=== PATIENT | female | born 1975 | race Caucasian/White ===

== ENCOUNTER 2020-05-22 10:19 | Outpatient (CLI) | payer OTHER, SELFPAY ==
--- NOTE | ~2020-05-22 | MM_ITS ---
EXAMINATION: MM screening [facility] BI w [place] HISTORY: Screening mammogram TECHNIQUE: Craniocaudal and mediolateral oblique 3-D tomosynthesis images were obtained and synthetic 2-D images were generated. CAD analysis was submitted and interpreted. COMPARISON: 05/04/2019, 04/28/2018, 04/19/2017 BREAST PARENCHYMAL COMPOSITION: There are scattered areas of fibroglandular density. FINDINGS: There is no evidence of suspicious mass, calcification, or architectural distortion to sugg est malignancy in either breast. There has been no suspicious interval change. IMPRESSION: 1. No mammographic evidence of malignancy. 2. Recommend routine screening mammography in one year. BI-RADS Category 1: Negative Reviewed, dictated and finalized at location A.
== END 2020-05-22 10:20 | disposition home or self-care (01) ==
LOC: ANHIMG 10:21
PROVIDERS: PCP Internal Medicine; Visit Provider Obstetrics & Gynecology
DX: Z12.31 Encounter for screening mammogram for malignant neoplasm of breast (principal)
CPT/HCPCS: 77063; 77067

== ENCOUNTER 2021-05-24 10:21 | Outpatient (CLI) | payer OTHER, SELFPAY ==
--- NOTE | ~2021-05-24 | MM_ITS ---
EXAMINATION: MM screening [facility] [place] HISTORY: Screening TECHNIQUE: Craniocaudal and mediolateral oblique 3-D tomosynthesis images were obtained and synthetic 2-D images were generated. CAD analysis was submitted and interpreted. COMPARISON: Comparison to multiple prior studies sequentially, with oldest reviewed study dated 12/04. BREAST PARENCHYMAL COMPOSITION: There are scattered areas of fibroglandular density. FINDINGS: There is no evidence of suspicious mass, calcification, or architectural distortion to sugg est malignancy in either breast. There has been no suspicious interval change. IMPRESSION: 1. No mammographic evidence of malignancy. 2. Recommend routine screening mammography in one year. BI-RADS Category 1: Negative Reviewed, dictated and finalized at location A.
== END 2021-05-24 10:22 | disposition home or self-care (01) ==
LOC: ANHIMG 10:23
PROVIDERS: PCP Internal Medicine; Visit Provider Obstetrics & Gynecology
DX: Z12.31 Encounter for screening mammogram for malignant neoplasm of breast (principal)
CPT/HCPCS: 77063; 77067

== ENCOUNTER 2022-06-20 11:23 | Outpatient (CLI) | payer OTHER, SELFPAY ==
--- NOTE | ~2022-06-20 | MM_ITS ---
EXAMINATION: MM screening [facility] BI w [place] HISTORY: Screening mammogram TECHNIQUE: Craniocaudal and mediolateral oblique 3-D tomosynthesis images were obtained and synthetic 2-D images were generated. CAD analysis was submitted and interpreted. COMPARISON: 05/24/2021, 05/22/2020, 05/04/2019 BREAST PARENCHYMAL COMPOSITION: There are scattered areas of fibroglandular density. FINDINGS: No suspicious mass, calcification, or architectural distortion are identified in either sandra ast to suggest malignancy. There has been no suspicious interval change. IMPRESSION: 1. No mammographic evidence of malignancy. 2. Recommend routine screening mammography in one year. BI-RADS Category 1: Negative Reviewed, dictated and finalized at location A. ER RESISTANCE
== END 2022-06-20 11:24 | disposition home or self-care (01) ==
PROVIDERS: PCP Internal Medicine; Visit Provider Obstetrics & Gynecology
DX: Z12.31 Encounter for screening mammogram for malignant neoplasm of breast (principal)
CPT/HCPCS: 77063; 77067

== ENCOUNTER 2023-11-03 10:07 | Outpatient (CLI) | payer OTHER, SELFPAY ==
--- NOTE | ~2023-11-03 | MM_ITS ---
EXAMINATION: MM screening [facility] [place] HISTORY: Screening mammogram TECHNIQUE: Craniocaudal and mediolateral oblique 3-D tomosynthesis images were obtained and synthetic 2-D images were generated. CAD analysis was submitted and interpreted. COMPARISON: 06/20/2022, 05/24/2021 bilateral screening mammogram examinations BREAST PARENCHYMAL COMPOSITION: There are scattered areas of fibroglandular density. FINDINGS: There is no evidence of suspicious mass, calcification, or architectural distortion to sugg est malignancy in either breast. There has been no suspicious interval change. IMPRESSION: 1. No mammographic evidence of malignancy. 2. Recommend routine screening mammography in one year. BI-RADS Category 1: Negative Reviewed, dictated and finalized at location A.
== END 2023-11-03 10:08 | disposition home or self-care (01) ==
PROVIDERS: PCP Internal Medicine; Visit Provider Obstetrics & Gynecology
DX: Z12.31 Encounter for screening mammogram for malignant neoplasm of breast (principal)
CPT/HCPCS: 77063; 77067

== ENCOUNTER 2024-12-07 14:59 | Outpatient (CLI) | payer OTHER, SELFPAY ==
--- OUTSIDE RECORDS SUMMARY | 2024-12-07 15:04 | XMS_ITS | Data Portability ---
Author Organization [place] - [employer], Main Office Address [address] [place] [address] Assessment No assessment recorded. Plan of Treatment Reminders Order Date Submit Date Provider Last Modified By Organization Details Last Modified Time Details Appointments Any 15 2024 03:30P M Attila Cedillo MD Not available Not available Not available Lab basic metabolic 1997 panel, serum or plasma 2024 025 [email or web address] [facility], [address], [address], [place], [address], 12/04/2024 17:35:00 HbA1c (hemoglob in A1c), blood 2024 025 [email or web address] [facility], [address], [address], [place], [address], 12/04/2024 17:35:00 basic metabolic 1998 panel, serum or plasma 2024 025 JOSE ELIAS [facility], [address], [address], [place], [address], 08/19/2024 16:30:19 HbA1c (hemoglob in A1c), blood 2024 025 JOSE ELIAS [facility], [address], [address], [place], [address], 08/19/2024 14:12:01 HbA1c (hemoglob in A1c), blood 2023 024 [facility], [address], [address], [place], [address], 03/28/2024 09:49:04 CMP, serum or plasma 2023 024 [place] [id number] [facility], [address], [address], [place], [address], 03/28/2024 09:49:04 microalbu min, urine 2023 024 [place] [address] [facility], 2022 [address], [address], [place], [address], 03/28/2024 09:49:04 lipid panel, serum 2023 024 [place] [address] [facility], 20[address], [address], [place], [address], 03/28/2024 09:49:04 CBC w/ auto diff 2023 024 [place] [address] [facility], [address], [address], [place], [address], 03/28/2024 09:49:04 HbA1c (hemoglob in A1c), blood 2023 024 [email or web address] [facility], [address], [address], [place], [address], 10/06/2023 16:29:38 BMP, serum or plasma 2023 024 [email or web address] [facility], [address], [address], [place], [address], 10/06/2023 16:30:29 Referral None recorded. Procedures None recorded. Surgeries None recorded. Imaging None recorded. Medication Orders Ozempic 0.25 mg or 0.5 mg (2 mg/3 mL) subcutane ous pen injector 2024 025 [email or web address] [facility] [address], [address] [place] [address], [address], 11/27/2024 17:51:49 OneTouch Verio test strips 2024 025 [email or web address] [facility] [address], [address] [place] [address], [address], 08/17/2024 17:04:37 metformin ER 500 mg tablet,ex tended release 24 hr 2022 023 JOSE ELIAS [facility] [address], [address] [place] [address], [address], 06/07/2023 16:51:40 glimepiri de 1 mg tablet 2022 023 [email or web address] [place] [address], [address] [place] [address], [address], 05/29/2024 08:45:45 Patient TargetsNo targets recorded. Patient InstructionsNo instructions recorded. Reason for Referral None Reported. Results Created Date Observation Date Name Description Value Unit Range Abnormal Flag Note LastModifiedBy Organization Detail LastModifiedTime 10/06/1910/06/2023 BASIC METAB OLIC PANEL sodium 138 mmol/ L 137-14 5 Not Available [facility] (Lab) [address] [place], [address], 10/06/2023 19:13:54 10/06/1910/06/2023 BASIC METAB OLIC PANEL potassium 3.8 mmol/ L 3.5-5. 1 Not Available [facility] (Lab) [address] [place], [address], 10/06/2023 19:13:54 10/06/19 24 10/06/2023 BASIC METAB OLIC PANEL chloride 104 mmol/ L 98-107 Not Available [facility] (Lab) [address] [place], [address], 10/06/2023 19:13:54 10/06/19 24 10/06/2023 BASIC METAB OLIC PANEL carbon dioxide 28 mmol/ L 22-30 Not Available [facility] (Lab) [address] [place], [address], 10/06/2023 19:13:54 10/06/19 24 10/06/2023 BASIC METAB OLIC PANEL anion gap 9.8 mmol/ L 14-22 low Not Available [facility] (Lab) [address] [place], [address], 10/06/2023 19:13:54 10/06/19 24 10/06/2023 BASIC METAB OLIC PANEL glucose 112 mg/dL 70-99 high Not Available [facility] (Lab) [address] [place], [address], 10/06/2023 19:13:54 10/06/19 24 10/06/2023 BASIC METAB OLIC PANEL BUN 14 mg/dL 8-19 Not Available [facility] (Lab) [address] [place], [address], 10/06/2023 19:13:54 10/06/19 24 10/06/2023 BASIC METAB OLIC PANEL creatinine 0.52 mg/dL 0.66-1 .25 low Not Available [facility] (Lab) [address] [place], [address], 10/06/2023 19:13:54 10/06/19 24 10/06/2023 BASIC METAB OLIC PANEL GFR >60 Refer ence Range : Picher ge GFR Healt hy Adult : >60 mL/mi n/1.7 3 m2 Chron ic Kidne y Disea se: 15-60 mL/mi n/1.7 3 m2 Kidne y Failu re: <15/m L/min /1.73 m2 www.n iddk. nih.g ov The MDRD study equat ion has not been valid ated in child mahendra <18 years of age; pregn ant women ; the elder ly >85 years of age; or in some racia l or ethni c subgr oups, such as Hispa nics. Outsi de the valid ated cody eters , estim ated GFR is less accur ate, requi ring clini shawna judgm ent on a case- by-ca se basis . Clini shawna inter preta tion for other races and ages must be made by the clini ida. The MDRD study equat ion has not been valid ated for the evalu ation of serum creat inine relat ed to nutri aristides l statu s or medic ation usage . For perso ns <18 years of age, a pedia tric GFR calcu lator is avail able on the F websi te: https ://ww w.kid margaret.o rg/pr ofess ional s/kdo qi/gf r_cal culat or Not Available [facility] (Lab) [address] [place], [address], 10/06/2023 19:13:54 10/06/19 24 10/06/2023 BASIC METAB OLIC PANEL calcium 9.6 mg/dL 8.4-10 .2 Not Available [facility] (Lab) [address] [place], [address], 10/06/2023 19:13:54 10/06/19 24 10/06/2023 HEMOG LOBIN A1C HA1C 6.8 % 4.0-6. 0 high Diabe sylvia Scree emelia Crite eboni: <5.7% Consi stent with absen ce of diabe sylvia 5.7-6 .4% Consi stent with incre ased risk for diabe sylvia (pred iabet es) >OR=6 .5% Consi stent with diabe sylvia REFER ENCE: Diabe sylvia Care 2016, 39(Cr ppl.1 ):s13 -s22 Not Available [facility] (Lab) [address] [place], [address], 10/06/2023 20:26:51 Result Notes None recorded. Problems Name Problem SNOMED Code Status Onset Date Resolution Date Notes Provider Name and Address Organization Details Recorded Time Pain of bilateral knee joints 04284255579 4104 Completed 202211/02/2022 Mary Macias CMA null, [place] [facility] 3 15:49:29 Pain of bilateral knee joints 51796298112 4104 Active 2022 Mary Macias CMA null, [place] [employer] [facility] 3 15:49:29 Gestation al diabetes mellitus 23729728 Completed Not Available [facility] 3 03:26:14 Otalgia 33206680 Completed 202106/05/2022 Not Available [facility] 3 03:26:14 Otalgia 95095580 Completed 202101/23/2022 Not Available [facility] 3 03:26:14 Steatotic liver disease 211337184 Active 2020 Not Available [facility] 3 03:26:14 Contact dermatiti s caused by urushiol from [facility] 093283236 Completed Not Available [facility] 3 03:26:14 Overweigh t 487498624 Completed 10/07/2022 Crystal acuna RMA null, [place] - [facility] 3 10:28:17 Low back pain 593963564 Completed Not Available [facility] 3 03:26:14 Type 2 diabetes mellitus without complicat ion 515330314 Completed 202101/23/2022 Not Available [facility] 3 03:26:14 Blood in urine 76989858 Completed 202001/23/2022 Not Available [facility] 3 03:26:14 Obesity 405765423 Active 2021 Crystal acuna RMA null, [employer] [facility] 3 10:27:46 Hyperlipi demia 98760619 Active 2019 Not Available [facility] 3 03:26:14 Diabetes mellitus 63193795 Active 2020 Attila Cedillo MD [address] [place] [address], [address], [address] , [facility] 5 11:19:34 Metabolic dysfuncti on-associ ated steatotic liver disease Active 2024 Attila eCdillo MD [address] [facility], [facility] [address], [place], [address] , [facility] [employer] 5 11:20:20 Problem Notes None recorded. Procedures Surgical History Date Name Laterality Status Provider Name and Address Organization Details Recorded Time section completed Not Available [facility] 09/23/2022 03:18:52 Imaging Results None recorded. Procedure Notes None recorded. Medical Equipment None Reported. Allergies No known drug allergies Medications Name Sig Start Date Stop Date Status Note LastModified by Organization Details LastModified Time metformin 500 mg tablet TAKE 2 TABLETS BY MOUTH TWICE DAILY active Not Available Not Available No t Available triamcinolo ne acetonide 0.5 % topical cream APPLY A THIN LAYER TO THE AFFECTED AREA(S) BY TOPICAL ROUTE 2 TIMES PER DAY 10/01 completed Not Available Not Available Not Available hydrocodone 5 mg-acetamin ophen 325 mg tablet 05/08 completed Not Available Not Available Not Available simvastatin 10 mg tablet TAKE 1 TABLET BY MOUTH EVERY DAY active Not Available Not Available No t Available Nexium 40 mg capsule,del ayed release Take 1 capsule every day by oral route as needed. 03/16 completed Not Available Not Available Not Available phentermine 37.5 mg tablet TK 1 T PO QD 10/01 completed Not Available Not Available Not Available phentermine 30 mg capsule TK 1 C PO QD 10/01 completed Not Available Not Available Not Available glimepiride 2 mg tablet TAKE 2 TABLETS BY MOUTH IN THE MORNING AND 1 TABLET IN THE EVENING 2024 active SABI 5/5/2 5 NOV 7/8/2 5 ok to rf Not Available Not Available Not Available glimepiride 1 mg tablet TAKE 2 TABLETS BY MOUTH IN THE MORNING AND 1 TABLET IN THE EVENING DAILY active Not Available Not Available No t Available Kenalog 40 mg/mL suspension for injection Take 1 mL by injection route. 10/01 completed Not Available Not Available Not Available amoxicillin 875 mg tablet TAKE 1 TABLET BY MOUTH TWICE DAILY UNTIL GONE 02/02 completed Not Available Not Available Not Available ciprofloxac in 0.3 % eye drops INSTILL 1 DROP INTO AFFECTED EYE(S) BY OPHTHALMI C ROUTE EVERY 2 HOURSWHIL E AWAKE FOR 2 DAYS THEN 1 DROP EVERY 4 HRS WHILE AWAKE FOR 5 DAYS 07/15 completed Not Available Not Available Not Available hydroxyzine HCl 25 mg tablet Take 1 tablet 3 times a day by oral route. active Not Available Not Available No t Available ibuprofen 600 mg tablet 05/08 completed Not Available Not Available Not Available methylpredn isolone 4 mg tablets in a dose pack take as directed active Not Available Not Available No t Available metformin ER 500 mg tablet,exte nded release 24 hr TAKE 2 TABLETS BY MOUTH TWICE DAILY active Not Available Not Available No t Available Microlet Lancet active Not Available Not Available Not Available metformin ER 1,000 mg tablet,exte nded release 24hr (osmotic) Take 1 tablet twice a day by oral route. 06/28 completed Not Available Not Available Not Available Contour Next Test Strips Use test strips to check blood sugar BID 2024 active Not Available Not Available Not Avai lable Tri-Estaryl la (28) 0.18 mg(7)/0.215 mg(7)/0.25 mg(7)-0.035 mg tablet TAKE 1 TABLET BY MOUTH EVERY DAY active Not Available Not Available No t Available Jardiance 10 mg tablet Take 1 tablet every day by oral route. 10/06 completed Not Available Not Available Not Available Flucelvax Quad 6941-5946 (PF) 60 mcg (15 mcg x 4)/0.5 mL IM syringe TO BE ADMINISTE RED BY PHARMACIS T FOR IMMUNIZAT ION 10/01 completed Not Available Not Available Not Available Flucelvax Quad 4003-7646 (PF) 60 mcg (15 mcg x 4)/0.5 mL IM syringe TO BE ADMINISTE RED BY PHARMACIS T FOR IMMUNIZAT ION 07/15 completed Not Available Not Available Not Available Afluria Quad (PF) 60 mcg (15 mcg x 4)/0.5 mL IM syringe active Not Available Not Available N ot Available Flucelvax Quad (PF) 60 mcg (15 mcg x 4)/0.5 mL IM syringe active Not Available Not Available N ot Available Rybelsus 7 mg tablet Take 1 tablet every day by oral route. 03/05 completed Not Available Not Available Not Available Fluzone Quad (PF) 60 mcg (15 mcg x 4)/0.5 mL IM syringe PHARMACY ADMINISTE RED 06/25 completed Not Available Not Available Not Available Ozempic 0.25 mg or 0.5 mg (2 mg/3 mL) subcutaneou s pen injector Inject 0.5 mg by subcutane ous route once a week 2024 active Not Available Not Available Not Avai lable Vitals Date Recorded Body height Body mass index (BMI) Body weight Heart rate Oxygen saturation Oxygen saturation in Arterial blood by Pulse oximetry Body temperature Systolic blood pressure Diastolic blood pressure Provider Name and Address Organization Details Last Updated DateTime 3 154.94 cm 29.7 kg/m2 07332 g 84 /min 98 % 98 % 98.1 [degF] 122 mm[Hg] 78 mm[Hg] Holden Rangel [facility] [employer] [facility] [employer] [facility] 3 15:53:57 Date Recorded Body height Body mass index (BMI) Body weight Body temperature Heart rate Oxygen saturation Oxygen saturation in Arterial blood by Pulse oximetry Systolic blood pressure Diastolic blood pressure Provider Name and Address Organization Details Last Updated DateTime 4 154.94 cm 30.6 kg/m2 55873.9 6 g 98.8 [degF] 91 /min 99 % 99 % 124 mm[Hg] 82 mm[Hg] Ernestina daigle [facility] [employer] [facility] [employer] [facility] 4 15:45:41 Date Recorded Body height Body mass index (BMI) Body weight Body temperature Heart rate Oxygen saturation Oxygen saturation in Arterial blood by Pulse oximetry Systolic blood pressure Diastolic blood pressure Provider Name and Address Organization Details Last Updated DateTime 4 154.94 cm 30 kg/m2 33254.1 9 g 98.6 [degF] 90 /min 98 % 98 % 120 mm[Hg] 74 mm[Hg] Shannan Patel [facility] [employer] [facility] 4 15:12:26 Date Recorded Body height Body mass index (BMI) Body weight Body temperature Oxygen saturation Oxygen saturation in Arterial blood by Pulse oximetry Heart rate Systolic blood pressure Diastolic blood pressure Provider Name and Address Organization Details Last Updated DateTime 5 154.94 cm 31 kg/m2 04807.1 5 g 97.8 [degF] 98 % 98 % 87 /min 124 mm[Hg] 78 mm[Hg] Yadira castillo [employer] 5 15:06:03 Date Recorded Body height Body mass index (BMI) Body weight Body temperature Heart rate Oxygen saturation Oxygen saturation in Arterial blood by Pulse oximetry Systolic blood pressure Diastolic blood pressure Provider Name and Address Organization Details Last Updated DateTime 5 154.94 cm 31.6 kg/m2 01223.9 3 g 97.3 [degF] 85 /min 98 % 98 % 140 mm[Hg] 88 mm[Hg] AMPARO Neal [employer] 5 11:03:35 Social History Question Answer Notes LastModified by Organizat ion Details LastModified Time Tobacco Smoking Status Never Smoker Sonia breen [employer] 02/08/2023 15:48:20 Do You Have An Advance Directive? No [id number] Information not available 09/23/2022 What Is Your Level Of Caffeine Consumption? Occasional [id number] Information not available 09/23/2022 How Much Tobacco Do You Chew? None [id number] Information not available 09/23/2022 In The 14 Days Before Symptom Onset, Have You Had Close Contact With A Laboratory-confir med COVID-19 While That Case Was Ill? No Information not available 02/08/2023 In The 14 Days Before Symptom Onset, Have You Had Close Contact With A Person Who Is Under Investigation For COVID-19 While That Person Was Ill? No Information not available 02/08/2023 What Type Of Diet Are You Following? REGULAR [id number] Information not available 09/23/2022 Which Illicit Or Recreational Drugs Have You Used? None Information not available 02/08/2023 What Is The Highest Grade Or Level Of School You Have Completed Or The Highest Degree You Have Received? [id number] Information not available 02/08/2023 Have There Been Any Changes To Your Family Or Social Situation? No Information no t available 02/08/2023 What Is The Fluoride Status Of Your Home? Unknown Information not available 02/08/2023 Are There Any Guns Present In Your Home? No Information not available 02/08/2023 Where Do You Live? SingleLevelHouse Information not available 02/08/2023 Do You Have A Medical Power Of Care Partner? No Information not available 02/08/2023 What Was The Date Of Your Most Recent Tobacco Screening? 03/05/2021 Information not available 02/08/2023 What Is Your Relationship Status? [id number] Information not available 09/23/2022 Do You Use Your Seat Belt Or Car Seat Routinely? Yes Information not available 02/08/2023 Do You Have Smoke And Carbon Monoxide Detectors In Your Home? Yes Information not available 02/08/2023 Are You Passively Exposed To Smoke? No Information no t available 02/08/2023 Are There Any Smokers In Your House? No Information not available 02/08/2023 Do You Use Sunscreen Routinely? Yes Information not available 02/08/2023 Have You Recently Traveled Abroad? No Information not available 02/08/2023 Do You Have Any Dietary Restrictions? No Information not available 02/08/2023 Sex: Female Functional Status Question Answer Note LastModified by Organizat ion Details LastModified Time Do you use any illicit or recreational drugs? No Information not available 02/08/2023 What is your level of alcohol consumption? 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 None [id number] Information not available 09/23/2022 Mental Status Question Answer Note LastModified by Organization D etails LastModified Time Do you feel stressed (tense, restless, nervous, or anxious, or unable to sleep at night)? [id number] Information not available 02/08/2023 Family History Relationship Description Onset Age of this Age Resolved Age Notes LastModified by Organization Details LastModified Time Father Malignant lymphoma Not available 2024 14:57:48 Mother Diabetes mellitus [id number] Not available 09/23/2022 03:18:57 Mother Essential hypertension Not available 14:57:48 Medical History No medical history recorded. Gynecological HistoryNo gynecological history recorded. Obstetrics History GPAL:G 0 P 0 0 0 0 Immunizations Vaccine Type Date Status Note Provider Nam e and Address Organization Details Recorded Time Influenza, split virus, quadrivalent, preservative 2 completed Ernestina Baumann [employer] null, [facility] 10/06/2023 15:45:48 Influenza, split virus, quadrivalent, preservative 1 completed Ernestina Baumann [employer] null, [facility] 10/06/2023 15:45:48 SARS-COV-2 (COVID-19) vaccine, UNSPECIFIED 1 completed Ernestina Baumann CMA null, [facility] 10/06/2023 15:45:48 SARS-COV-2 (COVID-19) vaccine, UNSPECIFIED 1 completed Ernestina Baumann [employer] null, [facility] 10/06/2023 15:45:48 Influenza, split virus, quadrivalent, preservative 0 completed Ernestina Baumann [employer] null, [facility] 10/06/2023 15:45:48 Influenza, split virus, quadrivalent, preservative 7 completed Not Available [facility] 09/23/2022 03:35:09 influenza, unspecified formulation 6 completed Ernestina Baumann [employer] null, [facility] 10/06/2023 15:45:48 Influenza, split virus, quadrivalent, preservative 9 completed Ernestina Baumann [employer] null, [facility] 10/06/2023 15:45:48 influenza, unspecified formulation 8 completed Ernestina Baumann [employer] null, [facility] 10/06/2023 15:45:48 Influenza, split virus, trivalent, preservative 3 completed Not Available [facility] 09/23/2022 03:35:10 Influenza, high-dose, trivalent, PF 5 completed Not Available [facility] 09/23/2022 03:35:10 Influenza, split virus, trivalent, preservative 4 completed Ernestina Baumann [employer] null, [place] [employer] [facility] [employer] [facility] 10/06/2023 15:45:48 Influenza, split virus, trivalent, PF 3 completed Ernestina Baumann [employer] null, [employer] [facility] [employer] 10/06/2023 15:45:48 Influenza, split virus, quadrivalent, PF 3 completed Attila Cedillo MD [address], [address], [place], [address], [employer] 04/26/2023 09:36:05 Influenza, split virus, trivalent, PF 5 completed Attila Cedillo MD [address], [address], [place], [address], [employer] 08/17/2024 15:57:36 Past Encounters Encounter ID Performer Location Encounter Start Date Encounter Closed Date Diagnosis/Indication Diagnosis SNOMED-CT Code Diagnosis ICD10 Code Diagnosis Note [id number] MD WILLIAM [facility] [address] [place] [address] 10/30/2020 00:00:00 10/30/2020 17:34:34 [id number] MD GABI [facility] [address] [place] [address] 03/05/2021 00:00:00 03/05/2021 17:28:20 [id number] MD WILLIAM [facility] [address] [place] [address] 06/05/2021 00:00:00 06/05/2021 15:56:57 [id number] MD WILLIAM [facility]izar[facility] Internal [address] [place] [address] 10/06/2021 00:00:00 10/06/2021 10:13:45 [id number] Attila Cedillo MD [facility] Internal Med [facility] [address] [place] [address] 02/02/2022 00:00:00 02/02/2022 12:56:49 [id number] Attila Cedillo MD [facility] Internal Med [address] [place] [address] 06/05/2022 00:00:00 06/05/2022 11:50:45 [id number] Attila Cedillo MD [facility] Internal Med [address] [place] [address] 10/07/2022 10:19:14 10/07/2022 11:17:57 Diabetes mellitus 62443927 E11.9 STOP glimepride due to hypoglycem ia Hyperlipidemia 05085961 E78.5 stable Obesity 309069881 E66.9 watch diet Adult heal th examination 158643344 Z00.00 Pap- 2021- GYNMammogr am- 05/2022FLU - 2COV ID- #1- 09/27/20, #2- 10/18/20 Steatotic liver disease 791878615 K76.0 lose weight Pain of bi lateral knee joints 9135725255 89146 M25.561 knee exercises discussed [id number] Attila Cedillo MD [facility] Internal Med [facility] [address] [place] [address] 02/08/2023 15:47:47 02/08/2023 16:40:59 Diabetes mellitus 73323664 E11.9 labs Hyperlipidemia 50487608 E78.5 stable Obesity 841543605 E66.9 watch diet Steatotic liver disease 683137720 K76.0 lose weight Adult heal th examination 223295834 Z00.00 Pap- 2021- GYNMammogr am- 05/2022FLU - 2COV ID- #1- 09/27/20, #2- 10/18/20 Depression screening 171 346098 Z13.31 neg Body mass index 30+ - obesity 384717092 Z68.30 healthy diet and exercise discussed [id number] Attila Cedillo MD [facility] Internal [facility] [address] [place] [address] 04/22/2023 15:46:03 04/22/2023 16:21:27 Diabetes mellitus 15262537 E11.9 advised to watch diet, add Glimepride Administra tion of influenza vaccine 81866898 Z23 [id number] Attila Cedillo MD [facility] Internal [facility] [address] [place] [address] 06/07/2023 15:38:36 06/07/2023 16:57:23 Diabetes mellitus 69068355 E11.9 labs Obesity 993343275 E66.9 watch diet Steatotic liver disease 948414501 K76.0 lose weight Adult heal th examination 404879187 Z00.00 Pap- 2021- GYNMammogr am- 05/2022FLU - 2COV ID- #1- 09/27/20, #2- 10/18/20 Screening mammography 24 868863 Z12.31 getting it next month [id number] Attila Cedillo MD [facility] Internal [address] [place] [address] 10/06/2023 15:35:50 10/06/2023 16:22:30 Diabetes mellitus 97758350 E11.9 labs, GETTING BETTER Obesity 320273322 E66.9 advised to watch diet Steatotic liver disease 825689948 K76.0 lose weight Adult heal th examination 596834878 Z00.00 Pap- 2022- GYNMammogr am- 05/2023FLU - 3COV ID- #1- 09/27/20, #2- 10/18/20 Screening mammography 24 445834 Z12.31 had it in 06/17, no report [id number] Attila Cedillo MD [facility] [facility] [place] [id number] [place] [address] 02/23/2024 15:03:55 02/23/2024 15:47:43 Diabetes mellitus [id number] E11.9 under control Obesity [id number] E66.9 advised to watch diet Steatotic liver disease [id number]||2024-12-07 18:04:00|MM_ITS|ETHANT|Imaging|[id number]|"EXAMINATION: MM screening wendy BI w [place] HISTORY: Screening TECHNIQUE: Craniocaudal and mediolateral oblique 3-D tomosynthesis images were obtained and synthetic 2-D images were generated. CAD analysis was submitted and interpreted. COMPARISON: Comparison to multiple prior studies sequentially, with oldest reviewed study dated 10/2017. BREAST PARENCHYMAL COMPOSITION: Not dense: There are scattered areas of fibroglandular density. FINDINGS: There is no evidence of suspicious mass, calcification, or architectural distortion to sugg est malignancy in either breast. There has been no suspicious interval change. IMPRESSION: 1. No mammographic evidence of malignancy. 2. Recommend routine screening mammography in one year. BI-RADS Category 1: Negative Reviewed, dictated and finalized at location A. IMPRESSION: 1. No mammographic evidence of malignancy. 2. Recommend routine screening mammography in one year. BI-RADS Category 1: Negative "
== END 2024-12-07 15:00 | disposition home or self-care (01) ==
LOC: ANHIMG 15:01
PROVIDERS: PCP Internal Medicine; Visit Provider Obstetrics & Gynecology
DX: Z12.31 Encounter for screening mammogram for malignant neoplasm of breast (principal)
CPT/HCPCS: 77063; 77067